=== PATIENT | male | born 1955 | race Caucasian/White ===

== ENCOUNTER 2021-05-13 12:08 | Day surgery (SDC) | payer OTHER, MEDICARE ==
[~2021-05-13] VITALS: Ht 193 cm; Wt 105.0 kg
[2021-05-13] MEDS ORDERED: ATOR40TA PO (12:43)
[2021-05-13] MEDS ORDERED: AMIO200T42 PO (12:43)
[2021-05-13] MEDS ORDERED: LISI2.5T PO (12:43)
[2021-05-13] MEDS ORDERED: METO25TA91 PO (12:43)
[2021-05-13] MEDS ORDERED: APIX5TAB PO (12:43)
[2021-05-13] MEDS ORDERED: PIOG30TA23 PO (12:50)
[2021-05-13] MEDS ORDERED: SODIUM CHLORIDE 0.9% 1,000 ML IV SCH ×2 (13:00→15:30)
[2021-05-13 13:28] LABS: BASOPHILS % (AUTO) 1 % (0-1); EOSINOPHILS % (AUTO) 3 % (1-7); LYMPHOCYTES % (AUTO) 13 % (22-44); MEAN CORPUSCULAR HGB CONC 32.1 g/dL (33.2-36.2); MEAN PLATELET VOLUME 7.1 fL (7.4-10.4); MONOCYTES % (AUTO) 12 % (2-9); NEUTROPHILS % (AUTO) 71 % (42-75); PLATELET COUNT 276 x10^3/uL (130-400); RED BLOOD COUNT 6.28 x10^6/uL (4.38-5.82); RED CELL DISTRIBUTION WIDTH 24.3 % (9.4-14.8)
[2021-05-13 13:33] LABS: ANION GAP 4 mmol/L (5-15); CALCIUM 9.1 mg/dL (8.5-10.1); CHLORIDE 102 mmol/L (98-107); CREATININE 0.81 mg/dL (0.7-1.3)
[2021-05-13 14:00] LABS: ANISOCYTOSIS 1+
[2021-05-13 14:01] LABS: HYPOCHROMIA 1+; MICROCYTOSIS 1+; OVALOCYTES 1+
[2021-05-13 14:02] LABS: <PLATELET ESTIMATE> ADEQUATE; <PLT MORPHOLOGY> NORMAL PLT MORPH; POLYCHROMASIA 1+; TEAR DROPS 1+
[2021-05-13] MEDS ORDERED: TICAGRELOR 90 MG TABLET ONE (14:09)
[2021-05-13] MEDS ORDERED: FENTANYL PF 100 MCG/2ML ONE (14:09)
[2021-05-13] MEDS ORDERED: BIVALIRUDIN 250 MG ONE (14:09)
[2021-05-13] MEDS ORDERED: LIDOCAINE-MPF 1%, 5ML ONE (14:09)
[2021-05-13] MEDS ORDERED: MIDAZOLAM 1 MG/ML, 5ML ONE (14:09)
[2021-05-13] MEDS ORDERED: VERAPAMIL 2.5 MG/ML, 2ML ONE (14:09)
== END 2021-05-13 16:59 | disposition home or self-care (01) ==
LOC: CACL 12:08
PROVIDERS: ATTEND Internal Medicine Cardiovascular Disease
DX: I35.0 Nonrheumatic aortic (valve) stenosis (principal); I25.10 Atherosclerotic heart disease of native coronary artery without angina pectoris; I11.0 Hypertensive heart disease with heart failure; I50.20 Unspecified systolic (congestive) heart failure; I48.0 Paroxysmal atrial fibrillation; E11.9 Type 2 diabetes mellitus without complications; E78.5 Hyperlipidemia, unspecified; Z79.01 Long term (current) use of anticoagulants; Z79.899 Other long term (current) drug therapy
CPT/HCPCS: 36415; 80048; 85025; 93454; C1769; C1894; J2250; J3010; Q9967; 99156; 99157; J0583

== ENCOUNTER 2021-05-27 09:27 | Outpatient (CLI) | payer OTHER, MEDICARE ==
[~2021-05-27 09:27] MED LIST: AMIO200T42 PO; APIX5TAB PO; ATOR40TA PO; LISI2.5T PO; METO25TA91 PO; PIOG30TA23 PO
[2021-05-27] MEDS ORDERED: DOBUTAMINE/D5W PMX 250 ML ONE (10:19)
== END 2021-05-27 23:59 | disposition home or self-care (01) ==
LOC: CVU 09:27
PROVIDERS: ATTEND Internal Medicine Cardiovascular Disease
DX: Z01.810 Encounter for preprocedural cardiovascular examination (principal); I08.3 Combined rheumatic disorders of mitral, aortic and tricuspid valves; I65.23 Occlusion and stenosis of bilateral carotid arteries; I48.91 Unspecified atrial fibrillation; E78.5 Hyperlipidemia, unspecified; I11.9 Hypertensive heart disease without heart failure
CPT/HCPCS: 93306; 93880; J1250